=== PATIENT | male | born 1965 | race Two or more races ===

== ENCOUNTER 2025-01-08 13:34 | Emergency (ER) | payer MEDICAID, SELFPAY ==
[2025-01-08] VITALS (14 sets, daily range): BP systolic 128–154; BP diastolic 80–94; PULSE 63–75; RESP 16–20; TEMP 36.4–36.7; O2SAT 94–100; BMI 29.1
[2025-01-08 13:57] LABS: Basophils % (Auto) 0 % (0-2.5); Eosinophils # (Auto) 0.1 Thou/mm3 (0.0-0.5); Eosinophils % (Auto) 1 % (0-10); Hematocrit 40.2 % (41.0-53.0); Hemoglobin 14.4 g/dL (13.5-16.0); Immature Granulocytes % (Auto) 0 % (0-0); Immature Granulocytes Auto 0.02 Thou/mm3 (0.00-0.00); Lymphocytes # (Auto) 1.6 Thou/mm3 (1.0-4.8); Lymphocytes % (Auto) 20 % (10-50); Mean Corpuscular HGB Conc 35.8 g/dl (31.0-37.0); Mean Corpuscular Hemoglobin 32.1 pg (25.0-35.0); Mean Corpuscular Volume 90 fL (80-100); Monocytes # (Auto) 0.6 Thou/mm3 (0.0-0.8); Monocytes % (Auto) 8 % (0-12); Neutrophils # (Auto) 5.7 Thou/mm3 (1.8-7.7); Neutrophils % (Auto) 72 % (37-80); Nucleated Red Blood Cell % 0 /100 WBC (0); Platelet Count 241 Thou/mm3 (140-440); RDW Standard Deviation 42.1 fL (35.1-43.9); Red Blood Count 4.49 Miln/mm3 (4.50-5.90)
--- NOTE | 2025-01-08 13:58 | EDNOTE_ITS ---
ED Eye Problem RME/HPI General Chief complaint: Eye Problems Stated complaint: RIGHT EYE SWELLING S/P BEE STING Time Seen by Provider: 01/08/25 13:46 Arrival date/time: 01/08/25 13:34 RME / HPI RME / HPI Narrative: This section includes all my notes and documentations, including HPI, PE, and ED course.? Oli Macias MD HPI: 59 year old male with history of asthma presents to the ED for evaluation of right eye swelling beginning several hours ago after bee sting. No medications taken at home. No throat tightness. No breathing difficulty. No other associated symptoms or complaints reported. ROS: All negative except as documented in HPI. Physical Exam: General:? Alert and oriented.?? Eyes:?Right eye severely swollen swollen shut. Conjunctivae and lids clear.??PERRL. EOMI. No foreign body, upper and lower eyelids everted for exam. No corneal abrasion. ENT:? No nasal congestion.?? Neck:? Supple.?? Heart: RRR. Lungs:? No respiratory distress.??Good air movement. No rhonchi or wheezing or rales. Skin:? Warm and dry.?? Neuro:? Alert and oriented X 3.?? I reviewed all diagnostic test results: Blood tests unremarkable. At this point, diagnoses include: Bee sting reaction Treatment here included: Benadryl, Pepcid, Toradol, Zofran, soluMEDROL, Ancef, IV fluid. Significant improvement noted. Recommended outpatient management. Based on my best medical judgment, made decision no further evaluation or treatment indicated at this time.? Patient understands and agrees to the discharge instructions customized and printed, see below. Discharge Instructions from Dr. Macias printed for you: 1. Take prednisone and cephalexin as prescribed. 2. Apply ice for 20 minutes every 2-3 hours today and tomorrow. 3. Ibuprofen 800 mg every 6-8 hours today and tomorrow to decrease inflammation then as needed. 4. Benadryl 50 mg every 6-8 hours today and tomorrow then as needed. 5. Maxitrol eyedrops as prescribed. 6. See a private doctor on 01/13/2025 if not completely better. 7. Seek immediate medical care with worsening or with any concerns. Instrucciones de gypsy del Dr. Macias impresas para usted: 1. [place] prednisona y cefalexina seg?n lo prescrito. 2. Aplique hielo alyssa 20 minutos cada 2-3 horas hoy y ma?tomi. 3. Ibuprofeno 800 mg cada 6-8 horas hoy y ma?tomi para disminuir la inflamaci?n, y luego, seg?n sea necesario. 4. Benadryl 50 mg cada 6-8 horas hoy y ma?tomi, y luego, seg?n sea necesario. 5. Maxitrol gotas oft?lmicas seg?n lo prescrito. 6. Consulte con un m?dico particular el 13/01/2025 si no mejora por completo. 7. Busque atenci?n m?dica inmediata si la condici?n empeora o tiene alguna inquietud. Oli Macias MD Related Data Home Medications ?Medication ?Instructions ?Recorded ?Confirmed albuterol sulfate 90 mcg/actuation 1 puff inhalation Q 6H 10/18/17 10/18/17 aerosol inhaler beclomethasone dipropionate 40 1 puff inhalation Q12H 10/18/17 10/18/17 mcg/actuation aerosol inhaler (Qvar) Previous Rx's ?Medication ?Instructions ?Recorded cephalexin 500 mg capsule 500 mg PO TID 2 days #6 caps 01/08/25 [id number] 3.5 1 drp ophthalmic (eye) Q6H 5 days 01/08/25 mg/mL-10,000 unit/mL-0.1% eye #5 mL drops (Maxitrol) prednisone 50 mg tablet 50 mg PO BID 2 days #4 tabs 01/08/25 Allergies Allergy/AdvReac Type Severity Reaction Status Date / Time No Known Allergies Allergy Verified 01/08/25 13:37 Review of Systems Review of Systems Systems Reviewed: All systems reviewed, normal except as documented Past Medical History Past Medical History NEUROLOGIC: Negative Neurological Disorders CARDIAC: Negative Cardiac Disorders RESPIRATORY: Positive Asthma (controlled) GASTROINTESTINAL: Positive Gastrointestinal Disorders and Gastroesophageal Reflux Disease GENITOURINARY: Negative Genitourinary Disorders MUSCULOSKELETAL: Negative Musculoskeletal Disorders ENDOCRINE: Negative Endocrine Disorders HEMATOLOGIC: Negative Blood Disorders Family History FAMILY HISTORY: Negative Family Cardiac Disorders Surgical History SURGICAL: Negative Endocrine Surgery, Ear Surgery, Abdominal Surgery, Nephrectomy, Joint Replacement, Neurologic Surgery, Mastectomy or Vasectomy Social History SMOKING STATUS: Never smoker ED Exam Narrative Physical exam: As noted in HPI Course Quality Measures none Orders Category Date Time Status Saline [Insert IV] NOW Care 01/08/25 13:42 Active Bilirubin,Direct Stat Lab 01/08/25 13:54 Completed CBC Stat Lab 01/08/25 13:54 Completed CMP [Comprehensive Metabolic Panel] Stat Lab 01/08/25 13:54 Completed Magnesium Stat Lab 01/08/25 13:54 Completed DiphenhydrAMINE INJ [Benadryl Inj] Med 01/08/25 13:42 Discontinued 50 mg IVP X1 STA Famotidine Inj [Pepcid Inj] Med 01/08/25 13:42 Discontinued 20 mg IVP X1 ONE Ketorolac Inj [Toradol Inj] Med 01/08/25 13:42 Discontinued 30 mg IVP X1 ONE MethylPREDNISolone.* [SoluMEDROL Inj] Med 01/08/25 13:43 Discontinued 125 mg IVP X1 ONE MethylPREDNISolone.* [SoluMEDROL Inj] Med 01/08/25 14:56 Discontinued 125 mg IVP X1 ONE Ondansetron Inj [Zofran Inj] Med 01/08/25 13:42 Discontinued 4 mg IVP X1 ONE Sodium Chloride 0.9% 1000 ml [Ns] 1,000 ml Med 01/08/25 13:42 Discontinued IV 999 mls/hr ceFAZolin/D5W 2 GM IV [Ancef 2gm Ivpb] Med 01/08/25 13:42 Discontinued 2 gm in 100 ml IV X1 Vital Signs Vital signs: Vital Signs Temperature 98.1 F 01/08/25 13:44 Pulse Rate 75 01/08/25 13:44 Respiratory Rate 20 01/08/25 13:44 Blood Pressure 148/87 H 01/08/25 13:44 Pulse Oximetry (%) 96 01/08/25 13:44 Oxygen Delivery Method Room Air 01/08/25 13:44 Eye MDM Narrative MDM Narrative:: Carine Bright am scribing for and in the presence of Dr. Macias. 59 year old male with history of asthma presents to the ED for evaluation of right eye swelling beginning several hours ago after bee sting. No medications taken at home. No other associated symptoms or complaints reported. Patient data External records reviewed:: None Clinical information provided by:: patient Social determinants that could affect healthcare access:: none Patient has the following chronic illnesses:: asthma How is presenting disease/condition affected by chronic disease/condition?: uneffected by Evaluation data The following diagnostics were reviewed and interpreted by me:: lab results Lab and/or radiology exams considered but not ordered:: None Interpretation Summary: I reviewed all diagnostic test results: Blood tests unremarkable. Medications / Prescriptions Medications or Prescriptions considered but not ordered:: None Medication administrations:: Medication Administration History Discontinued Medications Diphenhydramine HCl (Diphenhydramine Inj 50 Mg/Ml Vial) 50 mg IVP X1 STA Stop: 01/08/25 13:43 Last Admin: 01/08/25 14:18 Dose: 50 mg Documented By: MIGUEL Famotidine (Famotidine Inj 10 Mg/Ml Vial 2 Ml) 20 mg IVP X1 ONE Stop: 01/08/25 13:43 Last Admin: 01/08/25 14:18 Dose: 20 mg Documented By: MIGUEL Sodium Chloride (Ns) 1,000 mls @ 999 mls/hr IV .Q1H1M ONE Stop: 01/08/25 14:42 Last Infusion: 01/08/25 14:58 Dose: Infused Documented By: Admin: 01/08/25 14:19 Dose: 999 mls/hr Documented By: MIGUEL Cefazolin Sodium (Ancef 2gm Ivpb) 2 gm in 100 mls @ 200 mls/hr IV X1 ONE Stop: 01/08/25 14:11 Last Infusion: 01/08/25 14:58 Dose: Infused Documented By: Admin: 01/08/25 14:22 Dose: 200 mls/hr Documented By: CG Ketorolac Tromethamine (Ketorolac Inj 30 Mg/Ml Vial) 30 mg IVP X1 ONE Stop: 01/08/25 13:43 Last Admin: 01/08/25 14:19 Dose: 30 mg Documented By: CG Methylprednisolone Sodium Succinate (Methylprednisolone Sod Succ 62.5 Mg/Ml 2ml Vial) 125 mg IVP X1 ONE Stop: 01/08/25 13:44 Last Admin: 01/08/25 14:21 Dose: 125 mg Documented By: CG Methylprednisolone Sodium Succinate (Methylprednisolone Sod Succ 62.5 Mg/Ml 2ml Vial) 125 mg IVP X1 ONE Stop: 01/08/25 14:57 Last Admin: 01/08/25 16:01 Dose: 125 mg Documented By: CG Ondansetron HCl (Ondansetron Inj 2 Mg/Ml Inj 2 Ml) 4 mg IVP X1 ONE; Protocol Stop: 01/08/25 13:43 Last Admin: 01/08/25 14:19 Dose: 4 mg Documented By: CG See above Consultations Consultation(s) initiated? (list below): No Diagnosis Eye Problem Differential Diagnosis: corneal abrasion, conjunctivitis, acute iritis, hyphema, periorbital cellulitis, subconjunctival hemorrhage, glaucoma, corneal ulcer, ruptured globe and other (allergic reaction, eyelid swelling, anaphalaxis, cellulitis ) Most likely diagnosis given after review of the tests above:: bee sting reaction Admission Indicated Admission indicated?: not indicated Explain why admission is indicated or not indicated:: With significant improvement, there was no indication for admission. Admission Request Was there a request for admission?: No Disposition Plan Disposition Plan: Discharge Discharge Attestation Discharge Attestation: The patient and all family members were given an opportunity to ask questions and understood the discharge instructions. Discharge instructions specifically effects, indications for sooner follow up or return to the emergency department, and the expected course of current diagnosis. Patient condition: Stable Discharge Plan Plan Patient Disposition: HOME (Self Care) Prescriptions/Referrals Prescriptions/Med Rec: New cephalexin 500 mg capsule 500 mg PO TID 2 Days Qty: 6 0RF neomycin-polymyxin B-dexameth [Maxitrol] 3.5mg/mL-10,000 unit/mL-0.1 % drops,suspension 1 drp ophthalmic (eye) Q6H 5 Days Qty: 5 0RF prednisone 50 mg tablet 50 mg PO BID 2 Days Qty: 4 0RF No Action albuterol sulfate 90 mcg/actuation Hfa Aerosol Inhaler 1 puff INHALATION Q6H beclomethasone dipropionate [Qvar] 40 mcg/actuation Aerosol 1 puff INHALATION Q12H Referrals: Jon Dow MD [Primary Care Provider] - In 1 week Problem List Clinical Impression: Bee sting reaction Patient/Caregiver Discharge Instructions Discharge Activity: activity as tolerated Education Materials: ED BEE STING General Allergic Rxn Additional Instructions: Discharge Instructions from Dr. Macias printed for you: 1. Take prednisone and cephalexin as prescribed. 2. Apply ice for 20 minutes every 2-3 hours today and tomorrow. 3. Ibuprofen 800 mg every 6-8 hours today and tomorrow to decrease inflammation then as needed. 4. Benadryl 50 mg every 6-8 hours today and tomorrow then as needed. 5. Maxitrol eyedrops as prescribed. 6. See a private doctor on 01/13/2025 if not completely better. 7. Seek immediate medical care with worsening or with any concerns. Instrucciones de gypsy del Dr. Macias impresas para usted: 1. [place] prednisona y cefalexina seg?n lo prescrito. 2. Aplique hielo alsysa 20 minutos cada 2-3 horas hoy y ma?tomi. 3. Ibuprofeno 800 mg cada 6-8 horas hoy y ma?tomi para disminuir la inflamaci?n, y luego, seg?n sea necesario. 4. Benadryl 50 mg cada 6-8 horas hoy y ma?tomi, y luego, seg?n sea necesario. 5. Maxitrol gotas oft?lmicas seg?n lo prescrito. 6. Consulte con un m?dico particular el 13/01/2025 si no mejora por completo. 7. Busque atenci?n m?dica inmediata si la condici?n empeora o tiene alguna inquietud. Print Language: Armenian Stand Alone Forms: [employer] Award Info., Patient Portal Info Letter
[2025-01-08 14:16] LABS: Alanine Aminotransferase 35 U/L (10-49); Albumin, Serum 4.5 gm/dL (3.5-5.0); Albumin/Globulin Ratio 1.9 (1.2-2.2); Alkaline Phosphatase 107 U/L (46-116); Anion Gap 9 (7-16); Aspartate Amino Transferase 29 U/L (0-34); BUN/Creatinine Ratio 14 Ratio (12-20); Bilirubin,Direct 0.1 mg/dL (0.0-0.3); Bilirubin,Total 0.5 mg/dL (0.3-1.2); Blood Urea Nitrogen 10 mg/dL (9-23); Calcium 9.1 mg/dL (8.3-10.6); Calcium (Corrected) 9.1 mg/dL (8.5-10.1); Carbon Dioxide 23.3 mMol/L (20.0-31.0); Chloride 108 mMol/L (98-107); Creatinine (Component) 0.7 mg/dL (0.6-1.3); Estimated Creatinine Clearance 120.9 mL/min (>60); Globulin 2.4 gm/dL (2.3-3.5); Glucose 99 mg/dL (74-106); Osmolality,Calculated 278 (275-295); Potassium 4.1 mMol/L (3.4-5.1); Sodium 140 mMol/L (136-145); Total Protein 6.9 gm/dL (5.7-8.2); eGFR > 60 See Note
[2025-01-08] MEDS: FAMOTIDINE INJ 10 MG/ML VIAL 2 ML 20 MG IVP (14:18)
[2025-01-08] MEDS: DiphenhydrAMINE INJ 50 MG/ML VIAL IVP (14:18)
[2025-01-08] MEDS: ONDANSETRON INJ 2 MG/ML INJ 2 ML 4 MG IVP (14:19)
[2025-01-08] MEDS: KETOROLAC INJ 30 MG/ML VIAL IVP (14:19)
[2025-01-08] MEDS: SODIUM CHLORIDE 0.9% 1000 ML 1,000 ML 999 ML IV (14:19)
[2025-01-08] MEDS: MethylPREDNISolone SOD SUCC 62.5 MG/ML 2ML VIAL 125 MG IVP ×2 (14:21→16:01)
[2025-01-08] MEDS: ceFAZolin/D5W 2 GM IV 2 GM/100 ML BAG IV (14:22)
== END 2025-01-08 16:47 | disposition home or self-care (01) ==
PROVIDERS: Emergency Provider Emergency Medicine; PCP Family Medicine
DX: T63.441A Toxic effect of venom of bees, accidental (unintentional), initial encounter (principal); H57.89 Other specified disorders of eye and adnexa
CPT/HCPCS: 36415; 80053; 82248; 83735; 85025; 96365; 96375; 96376; 99284; J0689; J1200; J1885; J2405; J2919; J3490; J7030